=== PATIENT | female | born 1990 | race Caucasian/White ===

== ENCOUNTER 2021-05-07 02:26 | Observation (INO) | END 2021-05-07 04:30 | disposition home or self-care (01) | LOC: 1NENULAB | PROVIDERS: ADMIT Registered Nurse; ATTEND Registered Nurse ==

== ENCOUNTER 2021-05-07 20:06 | Inpatient (IN) ==
[2021-05-07 19:07] LABS: Basophils % 0.2 %; Eosinophils % 0.1 %; Hematocrit 39.1 % (35.3-44.9); Hemoglobin 13.3 g/dL (11.5-15.4); Immature Granulocytes % 0.7 % (0-4); Lymphocytes # 1.1 K/mcL (0.6-4.6); Lymphocytes % 8.1 %; Mean Corpuscular Hemoglobin 32.4 pg (28.0-33.3); Mean Corpuscular Volume 95.1 fL (83.0-100.0); Mean Platelet Volume 10.1 fL (9.4-12.4); Monocytes # 0.9 K/mcL (0.0-1.3); Monocytes % 6.4 %; Platelet Count 212 K/mcL (140-400); Red Blood Count 4.11 M/mcL (3.82-4.97); Red Cell Distribution Width 12.8 % (11.5-14.5); Segmented Neutrophils % 84.5 %; White Blood Count 14.1 K/mcL (4.3-11.1)
[2021-05-07 19:28] LABS: Amphetamine Screen,Urine Negative ng/mL (Cutoff=1000); Barbiturate Screen,Urine Negative ng/mL (Cutoff=200); Benzodiazepines Screen,Urine Negative ng/mL (Cutoff=200); Cannabinoid Screen,Urine Negative ng/mL (Cutoff = 50); Cocaine Screen,Urine Negative ng/mL (Cutoff= 300); Opiate Screen,Urine Negative ng/mL (Cutoff=300); Phencyclidine Screen,Urine Negative ng/mL (Cutoff=25)
[~2021-05-07 20:06] MED LIST: *HR* FentaNYL (PF) 100 MCG/2 ML VIAL ONE; *HR* Nalbuphine 10 MG/ML AMPUL IV PRN; EPHEDrine 50 MG/ML VIAL IVP PRN; Epidural Premix (fent/bupiv) 110 ML EP ONE; Epidural Premix (fent/bupiv) 110 ML EP SCH; Famotidine 20 MG/2 ML VIAL IVP PRN; Lidocaine 1% 20 ML MDV INFILT PRN; Metoclopramide 10 MG/2 ML VIAL IVP PRN; Naloxone 0.4 MG/ML INJ IVP PRN; Ondansetron 4 MG/2 ML VIAL IVP PRN; Ringers Solution, Lactated 1,000 ML IVC SCH; Ringers Solution, Lactated 1,000 ML ONE; Ropivacaine/PF 0.2% 20 ML VIAL ONE
[2021-05-07 20:18] LABS: Influenza A PCR Negative (Negative); Influenza B PCR Negative (Negative); Resp. Syncytial Virus PCR Negative (Negative)
[2021-05-07 20:19] LABS: SARS-CoV-2 by PCR (In House) Negative (Negative)
[2021-05-07] MEDS ORDERED: Oxytocin 20 units/ LR 1000 mL 20 UNIT/1,000 ML BAG IVC SCH (20:45)
[2021-05-08] MEDS ORDERED: Lanolin 7 G OINT...G. TP PRN (06:17)
[2021-05-08] MEDS ORDERED: Ibuprofen 600 MG TABLET PO SCH (06:17)
[2021-05-08] MEDS ORDERED: Acetaminophen 325 MG TABLET PO SCH (06:17)
[2021-05-08] MEDS ORDERED: Ondansetron ODT 4 MG TAB.RAPDIS SL PRN (06:17)
[2021-05-08] MEDS ORDERED: Oxytocin 20 units/ LR 1000 mL 20 UNIT/1,000 ML BAG IVC SCH (06:17)
[2021-05-08] MEDS ORDERED: Benzocaine/Menthol 56 GM AEROSOL SPRAY TP PRN (06:17)
[2021-05-08] MEDS: Prenatal Vit/FA 1 EACH TABLET PO SCH (08:07)
[2021-05-09 07:06] LABS: Basophils % 0.4 %; Eosinophils # 0.1 K/mcL (0.0-0.6); Eosinophils % 1.2 %; Hematocrit 33.3 % (35.3-44.9); Immature Granulocytes % 0.8 % (0-4); Lymphocytes # 1.5 K/mcL (0.6-4.6); Lymphocytes % 13.4 %; Mean Corpuscular HGB Conc 33.9 g/dL (31.6-35.5); Mean Corpuscular Hemoglobin 32.8 pg (28.0-33.3); Mean Corpuscular Volume 96.8 fL (83.0-100.0); Mean Platelet Volume 9.9 fL (9.4-12.4); Monocytes # 0.8 K/mcL (0.0-1.3); Monocytes % 6.9 %; Neutrophils # 8.7 K/mcL (1.6-8.9); Platelet Count 166 K/mcL (140-400); Red Blood Count 3.44 M/mcL (3.82-4.97); Segmented Neutrophils % 77.3 %; White Blood Count 11.2 K/mcL (4.3-11.1)
[2021-05-09 07:20] LABS: Hemoglobin 11.3 g/dL (11.5-15.4)
[2021-05-09 07:48] VITALS: BP 119/73; PULSE 82; TEMP 97.9; O2SAT 98
[2021-05-09] MEDS: Prenatal Vit/FA 1 EACH TABLET PO SCH (07:58)
== END 2021-05-09 11:17 | disposition home or self-care (01) | DRG 807 ==
LOC: 1NENULAB → 1NENUOBS 05-08 05:49
PROVIDERS: ADMIT Obstetrics & Gynecology; ATTEND Obstetrics & Gynecology